=== PATIENT | female | born 1980 | race Caucasian/White ===

== ENCOUNTER 2021-01-21 19:22 | Emergency (ER) | payer OTHER ==
[~2021-01-21] VITALS: Ht 165.1 cm; Wt 108.9 kg
[2021-01-21] MEDS ORDERED: PREDNISONE 20 M20 MG PO (19:31)
[2021-01-21 23:10] LABS: ABSOLUTE BASOPHILS 0.1 thou/uL (0.0-0.2); ABSOLUTE EOSINOPHILS 0.4 thou/uL (0.0-0.7); ABSOLUTE LYMPHOCYTES 2.3 thou/uL (0.8-5.3); ABSOLUTE MONOCYTES 0.5 thou/uL (0.0-1.2); ABSOLUTE NEUTROPHILS 5.4 thou/uL (1.6-8.1); BASOPHILS 0.7 %; EOSINOPHILS 4.2 %; HEMATOCRIT 42.8 % (37.0-47.0); HEMOGLOBIN 13.6 gm/dL (12.0-15.0); LYMPHOCYTES 26.8 %; MCHC 31.7 g/dL (28.0-37.0); MCV 81.9 fL (80.0-100.0); MONOCYTES 5.5 %; MPV 9.2 fl. (7.2-11.1); NUCLEATED RBCS 0 /100WBC; PLATELET COUNT* 250 thou/uL (150-400); POLYS 62.8 %; RBC 5.22 mil/uL (4.20-5.00); RDW-CV 15.5 % (10.5-14.5); WBC 8.6 thou/uL (4.0-11.0)
[2021-01-21 23:20] LABS: CALCIUM 8.8 mg/dL (8.5-10.1); CREATININE 0.7 mg/dL (0.6-1.3); POTASSIUM 3.9 mmol/L (3.5-5.1)
[2021-01-21 23:30] LABS: ALBUMIN 3.5 g/dL (3.4-5.0); TOTAL BILIRUBIN 0.2 mg/dL (<0.1-1.0); TOTAL PROTEIN 7.6 g/dL (6.4-8.2)
[2021-01-21 23:49] LABS: INFLUENZA A ANTIGEN Negative (Negative); INFLUENZA B ANTIGEN Negative (Negative)
[2021-01-22] MEDS ORDERED: NASONEX17 GM NASAL (01:07)
[2021-01-22] MEDS ORDERED: PULMICORT0.5 MG/2 M INH (01:07)
[2021-01-22] MEDS ORDERED: ALBUTEROL2.5 MG/31 INH (01:07)
[2021-01-22 01:43] VITALS: BP 109/63
[2021-01-22] MEDS ORDERED: NEBULIZER MISCELL (05:20)
--- NOTE | 2021-01-22 12:18 | EKG ---
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
== END 2021-01-22 01:43 | disposition home or self-care (01) ==
LOC: M.ERS 19:22
PROVIDERS: Emergency Medicine
DX: R05.9 Cough, unspecified (principal); Z20.822 Contact with and (suspected) exposure to COVID-19; Z79.899 Other long term (current) drug therapy